=== PATIENT | female | born 1950 | race Caucasian/White ===

== ENCOUNTER 2016-06-14 12:17 | Inpatient (IN) | payer MEDICARE ==
[~2016-06-14] VITALS: Ht 160 cm; Wt 80.6 kg
[2016-06-14] MEDS ORDERED: ONDANSETRON 2 MG/ML (Z0FRAN) 2 ML VIAL IV ONE ×2 (13:15→14:55)
[2016-06-14 13:21] LABS: BASOPHILS % (AUTO) 0 % (0-2); EOSINOPHILS % (AUTO) 0 % (0-4); LYMPHOCYTES # (AUTO) 0.9 X10^3; MEAN CORPUSCULAR HGB CONC 35.4 g/dL (31.0-37.0); MEAN CORPUSCULAR VOLUME 89 FL (80-100); MEAN PLATELET VOLUME 10.2 FL (6.0-9.5); MONOCYTES % (AUTO) 12 % (3-11); NEUTROPHILS # (AUTO) 13.2 X10^3; NEUTROPHILS % (AUTO) 82 % (51-67); PLATELET COUNT 238 10^3uL (150-450); WHITE BLOOD COUNT 16.11 10^3uL (4.0-11.0)
[2016-06-14 13:22] LABS: MEAN CORPUSCULAR HEMOGLOBIN 31.6 PG (26.0-34.0)
[2016-06-14 13:29] LABS: ALBUMIN 4.2 g/dL (3.4-5.0); ANION GAP 15.9 MEQ/L (3-15)
[2016-06-14 13:44] LABS: BILIRUBIN,URINE Negative (Negative); CLARITY,URINE Clear; COLOR,URINE Yellow; GLUCOSE, URINE (UA) Negative (Negative); LEUKOCYTE ESTERASE ,URINE Trace (Negative); UROBILINOGEN,URINE 0.2 mg/dL (0.2-1.0)
[2016-06-14 13:49] LABS: URINE CENTRIFUGED VOLUME 12 mL
[2016-06-14 13:54] LABS: AMPHETAMINE SCREEN, URINE Negative (Negative); CANNABINOID SCREEN, URINE Negative (Negative); METHAMPHETAMINE SCREEN URINE S NEGATIVE (NEGATIVE); OPIATE SCREEN URINE Positive (Negative); PROPOXYPHENE STAT NEGATIVE (NEGATIVE)
[2016-06-14] MEDS ORDERED: SODIUM CHLORIDE FLUSH 3 ML SYR IV PRN (14:55)
[2016-06-14] MEDS ORDERED: SODIUM CHLORIDE FLUSH 10 ML SYR IV PRN (14:55)
[2016-06-14 17:38] VITALS: BP 97/64
[2016-06-14] MEDS ORDERED: POLYETHYLENE GLYCOL 17 GM (MIRALAX) PACKET PO PRN (18:55)
[2016-06-14] MEDS ORDERED: ONDANSETRON 2 MG/ML (Z0FRAN) 2 ML VIAL IV PRN (18:55)
[2016-06-14] MEDS: POTASSIUM CL IVPB 50 ML IV SCH ×4 (19:19→22:31)
[2016-06-14 20:17] VITALS: BP 132/84
[2016-06-14] MEDS ORDERED: LIDOCAINE PF 1% (XYLOCAINE) 2 ML VIAL INJ ONE (20:18)
[2016-06-15 00:19] VITALS: BP 130/68
[2016-06-15] MEDS: ACETAMINOPHEN 325 MG TAB (TYLENOL) PO PRN ×3 (00:35→15:59)
[2016-06-15 03:39] VITALS: BP 137/58
[2016-06-15 06:33] LABS: BASOPHILS % (AUTO) 0 % (0-2); EOSINOPHILS % (AUTO) 0 % (0-4); LYMPHOCYTES # (AUTO) 1.7 X10^3; MEAN CORPUSCULAR VOLUME 91 FL (80-100); MONOCYTES # (AUTO) 1.3 X10^3; MONOCYTES % (AUTO) 10 % (3-11); NEUTROPHILS # (AUTO) 9.6 X10^3; NEUTROPHILS % (AUTO) 76 % (51-67); PLATELET COUNT 251 10^3uL (150-450); WHITE BLOOD COUNT 12.66 10^3uL (4.0-11.0)
[2016-06-15] MEDS ORDERED: POTASSIUM CHLORIDE ER 20 MEQ TABLET PO ONE (06:35)
[2016-06-15 06:53] LABS: MEAN CORPUSCULAR HEMOGLOBIN 31.7 PG (26.0-34.0)
[2016-06-15 07:10] LABS: ALBUMIN 3.7 g/dL (3.4-5.0); ANION GAP 13.6 MEQ/L (3-15); TOTAL PROTEIN 7.2 g/dL (6.4-8.5)
[2016-06-15 08:20] VITALS: BP 155/62
[2016-06-15] MEDS: POTASSIUM CHLORIDE ER 20 MEQ TABLET PO SCH ×3 (09:17→17:46)
[2016-06-15] MEDS: ENOXAPARIN 40 MG/0.4 ML (LOVENOX) SYR SC SCH (09:19)
[2016-06-15 11:26] VITALS: BP 139/66
[2016-06-15] MEDS ORDERED: SODIUM CHLORIDE 0 ML ONE (15:52)
[2016-06-15] MEDS: CIPROFLOXACIN 400 MG/200 ML 200 ML IV SCH (15:55)
[2016-06-15 16:12] VITALS: BP 154/75
[2016-06-16] MEDS: ACETAMINOPHEN 325 MG TAB (TYLENOL) PO PRN ×2 (00:17→07:07)
[2016-06-16] MEDS: CIPROFLOXACIN 400 MG/200 ML 200 ML IV SCH ×2 (00:21→10:52)
[2016-06-16 01:15] VITALS: BP 161/80
[2016-06-16 06:14] LABS: MEAN CORPUSCULAR VOLUME 90 FL (80-100); MEAN PLATELET VOLUME 9.6 FL (6.0-9.5); PLATELET COUNT 284 10^3uL (150-450); WHITE BLOOD COUNT 13.64 10^3uL (4.0-11.0)
[2016-06-16 06:27] LABS: ALBUMIN 3.4 g/dL (3.4-5.0); ANION GAP 16.8 MEQ/L (3-15); MAGNESIUM* 1.8 mg/dL (1.6-2.3); PHOSPHORUS 3.4 mg/dL (2.4-4.9)
[2016-06-16 06:30] LABS: MEAN CORPUSCULAR HEMOGLOBIN 31.4 PG (26.0-34.0)
[2016-06-16 06:35] LABS: BAND NEUTROPHILS % 0 % (0-6); EOSINOPHILS % 0 % (0-4); LYMPHOCYTES # 2.5 #; MONOCYTES # 1.3 #; MONOCYTES % 10 % (3-11); RBC MORPH NORMAL (NORMAL); SEGMENTED NEUTROPHILS % 72 % (51-67); TOTAL CELLS COUNTED 100
[2016-06-16] MEDS: ENOXAPARIN 40 MG/0.4 ML (LOVENOX) SYR SC SCH (08:41)
[2016-06-16 08:42] VITALS: BP 166/86
[2016-06-16] MEDS ORDERED: ESTRADIOL VG SCH (09:20)
[2016-06-16] MEDS ORDERED: amLODIPine 5 MG (NORVASC) TAB PO SCH (09:20)
[2016-06-16] MEDS ORDERED: TRIAMTERENE/HCTZ 37.5MG-25MG (MAXZIDE, DYAZIDE) CAPSULE PO SCH (09:20)
[2016-06-16] MEDS ORDERED: PYRIDOXINE 100 MG PO SCH (09:20)
[2016-06-16] MEDS ORDERED: NON-FORMULARY MEDICATION 1 EA EA (Nebivolol HCl (Bystolic) 5 MG) PO SCH (09:20)
[2016-06-16] MEDS ORDERED: NON-FORMULARY MEDICATION 1 EA EA (Aspirin (Aspir 81) 81 MG) PO SCH (09:20)
[2016-06-16] MEDS ORDERED: ASPIRIN 81 MG CHEW (CHILDREN'S ASA) PO SCH (10:00)
[2016-06-16] MEDS ORDERED: NEBIVOLOL 2.5 MG PO SCH (10:00)
[2016-06-16] MEDS ORDERED: CONJUGATED ESTROGENS VG SCH (10:00)
[2016-06-16 11:42] VITALS: BP 136/68
[2016-06-16] MEDS ORDERED: PRAMIPEXOLE 0.25 MG PO SCH (21:00)
== END 2016-06-16 14:18 | disposition home or self-care (01) | DRG 689 ==
LOC: ED 12:23 → EDBD 17:00 → MED/SURG 17:00
PROVIDERS: ADMIT Family Medicine; ATTEND Family Medicine
DX: N12 Tubulo-interstitial nephritis, not specified as acute or chronic (principal); A41.9 Sepsis, unspecified organism; N17.9 Acute kidney failure, unspecified; E87.6 Hypokalemia; R09.02 Hypoxemia; T40.2X1A Poisoning by other opioids, accidental (unintentional), initial encounter; I25.10 Atherosclerotic heart disease of native coronary artery without angina pectoris; G25.81 Restless legs syndrome; Z79.82 Long term (current) use of aspirin
CPT/HCPCS: 36415; 70450; 74176; 80053; 80069; 80307; 81003; 81015; 83735; 84132; 84443; 84484; 85025; 87040; 87088; 87486; 87581; 87633; 87798; 93005; 96361; 96374; 96376; 99285